=== PATIENT | female | born 1965 | race Caucasian/White ===

== ENCOUNTER 2016-10-09 11:08 | Inpatient (IN) | payer MEDICARE, OTHER ==
[~2016-10-09] VITALS: Ht 170.2 cm; Wt 76.2 kg
[~2016-10-09 11:08] MED LIST: ARIP15TA2 PO; CYCL10TA2 PO; HYDR-971 PO; Hydrocodone/Acetaminophen PO; LAMO200T3 PO; LEVO500T38 PO; METR500T PO; NAPR550T3 PO; TRAZ100T12 PO
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
[2016-10-09 13:13] LABS: BASO # 0.2 x10^3/uL (0.0-0.2); BASO % 1 % (0-3); EOS % 1 % (0-3); HEMATOCRIT 38.8 % (36.0-47.0); HEMOGLOBIN 12.4 g/dL (12.0-15.5); LYMPH # 6.5 x10^3/uL (1.0-4.8); LYMPH % 52 % (24-48); MEAN CORPUSCULAR HEMOGLOBIN 29 pg (25-35); MEAN CORPUSCULAR HGB CONC 32 g/dL (31-37); MEAN CORPUSCULAR VOLUME 89 fL (79-100); MONO % 4 % (0-9); NEUT % 41 % (31-73); PLATELET COUNT 426 x10^3/uL (140-400); RED BLOOD COUNT 4.35 x10^6/uL (3.50-5.40); RED CELL DISTRIBUTION WIDTH 16.3 % (11.5-14.5); WHITE BLOOD COUNT 12.5 x10^3/uL (4.0-11.0)
--- NOTE | 2016-10-09 13:14 | RAD ---
Portable chest, 10/09/2016: History: Chest pain Comparison is made to a study from 03/16/2007. The heart size and pulmonary vascularity are normal. No pulmonary infiltrates are seen. There is no evidence of pleural fluid. IMPRESSION: No acute cardiopulmonary abnormality is detected.
[2016-10-09 13:23] LABS: PROTHROMBIN TIME PATIENT 12.1 SEC (11.7-14.0)
[2016-10-09 13:36] LABS: CALCIUM 9.6 mg/dL (8.5-10.1); POTASSIUM 4.4 mmol/L (3.5-5.1)
[2016-10-09 13:37] LABS: MAGNESIUM 2.4 mg/dL (1.8-2.4)
[2016-10-09 13:48] LABS: CKMB INDEX 0.5 % (0-4); CKMB MASS 0.6 ng/mL (0.0-3.6)
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
[2016-10-09] MEDS ORDERED: MORPHINE SULFATE 2 MG/ML DISP.SYRIN. IV PRN (15:15)
[2016-10-09] MEDS ORDERED: ONDANSETRON PF 4 MG/2 ML VIAL. IV PRN ×2 (15:15→22:30)
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
[2016-10-09] MEDS ORDERED: ASPIRIN 325 MG TABLET PO ONE (16:00)
--- NOTE | 2016-10-09 16:43 | ACF ---
Admission Forms Criteria CARDIOLOGY GRG Clinical Indications for Admission to Inpatient Care ( Place 'X' for any and all applicable criteria): Hospital admission is needed for appropriate care of the patient because of ANY ONE of the following (1): [ ] I. Hemodynamic instability as indicated by ALL of the following (1)(2)(3) (4)(5) [ ]a) Vital signs or other findings not as expected for chronic patient condition or baseline [ ]b) Instability indicated by ANY ONE of the following: [ ]i) Hypotension [ ]ii) Symptomatic Tachycardia unresponsive to treatment ( e.g., analgesia, fluids, sedation as indicated) [ ]iii) Inadequate perfusion indicated by ANY ONE of the following: [ ] 1) Lactic acidosis (> 2 mmol/L) [ ] 2) New abnormal capillary refill (> 3 seconds) [ ] 3) Reduced urine output [ ] 4) New altered mental status [ ]iv) Orthostatic vital sign changes unresponsive to treatment (e.g., fluids) [ ]v) IV inotropic or vasopressor medication required to maintain adequate blood pressure or perfusion [ ] II. Severe heart failure as indicated by ANY ONE of the following(17)(18) [ ]a) Respiratory distress [ ]b) Hypotension [ ]c) Anasarca (refractory to outpatient therapy) [ ]d) Cardiac arrhythmias of immediate concern [ ]e) Myocardial ischemia [ ] III. Cardiac arrhythmias or findings of immediate concern indicated by ANY ONE of the following (19)(20): [ ] a) Heart rhythms that are inherently dangerous or unstable indicated by ANY ONE of the following (21)(22)(23): [ ] i) Resuscitated ventricular fibrillation or cardiac arrest [ ] ii) Ventricular escape rhythm [ ] iii) Sustained ventricular tachycardia (30 seconds or more of ventricular rhythm at greater than 100 beats per minute) [ ] iv) Nonsustained ventricular tachycardia and ANY ONE of the following: [ ] 1) Suspected cardiac ischemia as cause or consequence of ventricular tachycardia [ ] 2) In setting of acute myocarditis [ ] b) Unstable cardiac conduction defects indicated by ANY ONE of the following(23)(24)(25) [ ] i) Type II second-degree atrioventricular block [ ]ii) Third-degree atrioventricular block [ ]iii) New-onset left bundle branch block with suspected myocardial ischemia [ ]c) Any heart rhythm and ANY ONE of the following (21)(22)(26)(27) (28) [ ] i) Continuous long-term ECG monitoring needed (e.g., initiation of drug requiring monitoring for more than 24 hours) [ ] ii) Patient has automatic implanted cardioverter defibrillator that is repeatedly firing, malfunctioning, or in need of immediate adjustment of settings beyond the scope of ambulatory or observation care [ ]d) Heart rhythms of concern due to ANY ONE of the following: [ ] i) Hypotension [ ] ii) Respiratory distress [ ] iii) Association with other significant symptoms (e.g., bradycardia with syncope or ongoing dizziness, supraventricular tachycardia with chest pain (14)(15)(17) [ ] IV. Monitoring for cardiac contusion beyond the scope of observation care needed [A](30)(31)(32) [ ] V. Surgical or device complication (e.g., valve replacement complication , pacemaker dysfunction) (35)(41)(44)(45)(46) [ ] . Inpatient palliative care needed. [B](49) Also use Inpatient Palliative Care Criteria [ ] VII. Nonbacterial thrombotic (marantic) endocarditis (36)(43)(47)(48) [X] VIII. Cardiology condition, symptom, or finding for which emergency and observation care has failed or are not considered appropriate. [ ] IX. Acute valvular disease requiring inpatient as indicated by ANY ONE of the following (41) [ ]a) Acute valvular regurgitation (42) [ ]b) Noninfectious valvulitis (43) [ ]c) Obstructive valve thrombosis [ ]d) Paravalvular leak [ ]e) Other significant valvular disorder remaining after emergency or observation level of care (as appropriate) [ ]X. Pericardial disease requiring inpatient treatment as indicated by ANY ONE of the following (33)(34)(35)(36)(37) [ ]a) Suspected tamponade (38)(39)(40) [ ]b) Hemopericardium [ ]c) Other significant pericardial disorder remaining after emergency or observation level of care (as appropriate) [ ] XI. Cardiac ischemia beyond scope of emergency and observation care. [ ] XII. Hypertension requiring inpatient treatment as indicated by ANY ONE of the following (6)(7)(8) [ ]a) SBP greater than 220 mm Hg or DBP greater than 120 mmHg despite treatment [ ]b) SBP greater than 140 mm Hg or DBP greater than 100 mm Hg with evidence of acute end organ damage as indicated by ANY ONE of the following [ ] i) Encephalopathy [ ] ii) Acute renal failure as indicated by new onset of ANY ONE of the following (9)(10)(11)(12)(13) [ ]1) 3-fold rise in serum creatinine from baseline [ ]2) Serum creatinine greater than 4 mg/dL ( 354 micromoles/L) with acute rise greater than 0.5 mg/dL (44.2 micromoles/L) [ ]3) Reduction of more than 75% in estimated glomerular filtration rate from baseline [ ]4) Estimated glomerular filtration rate less than 35 mL/min/1.73m2 (0.59 mL/sec/1.73m2) in child up to 18 years of age [ ]5) Cessation of urine output indicated by ALL of the following [ ]A. Adequate volume status [ ]B. Inadequate urine output as indicated by ANY ONE of the following [ ]a. Urine output less than 0.3 mL/kg/hr for 24 hours [ ]b. Anuria (urine output less than 0.1 mL/kg/hr) for 12 hours [ ] iii) Aortic dissection [ ] iv) Myocardial Ischemia [ ] v) Left ventricular heart failure [ ]vi) Retinal Hemorrhage [ ]vii) Other significant finding [ ]c) Hypertension in child requiring inpatient treatment as indicated by ALL of the following(14)(15)(16) [ ] i) Outpatient treatment not effective, not available, or not appropriate [ ]ii) SBP or DBP greater than 95th percentile for age [ ]iii) Evidence of acute end organ damage as indicated by ANY ONE of the following [ ]1) Altered mental status [ ]2) Acute renal failure as indicated by new onset of ANY ONE of the following(9)(10)(11)(12)(13) [ ]A. 3-fold rise in serum creatinine from baseline [ ]B. Serum creatinine greater than 4 mg/dL (354 micromoles/L) with acute rise greater than 0.5 mg/dL (44.2 micromoles/L) [ ]C. Reduction of more than 75% in estimated glomerular filtration rate from baseline [ ]D. Estimated glomerular filtration rate less than 35 mL/min/1.73m2 (0.59 mL/sec/1.73m2) in child up to 18 years of age [ ]E. Cessation of urine output indicated by ALL of the following [ ]a. Adequate volume status [ ]b. Inadequate urine output as indicated by ANY ONE of the following [ ]i) Urine output less than 0.3 mL/kg/hr for 24 hours [ ]ii) Anuria ( urine output less than 0.1 mL/kg/hr) for 12 hours [ ]3) Severe headache [ ]4) Visual disturbance [ ]5) Retinal hemorrhage [ ]6) Other significant finding [ ]XIII. Complications of transplanted heart indicated by ANY ONE of the following(61): [ ]a) Acute graft rejection requiring inpatient management (eg, intravenous immunosuppression)(62)(63) [ ]b) Acute graft heart failure indicated by ANY ONE of the following(64): [ ]i) Hemodynamic instability [ ]ii) Cardiac arrhythmias of immediate concern [ ]iii) Pulmonary edema that is very severe (eg, mechanical ventilation needed, imminent or likely, need for 100% oxygen to keep oxygen saturation above 90%) [ ]iv) Pulmonary edema that is persistent as indicated by ALL of the following: [ ]1) New need for oxygen therapy to keep oxygen saturation above 90% (or increased FiO2 need from baseline) [ ]2) Has not improved sufficiently with emergency department or observation care IV diuretics or other heart failure treatments[E] [ ]v) Altered mental status that is severe or persistent [ ]vi) Increased creatinine (new on laboratory test) with reduction of more than 50% in estimated glomerular filtration rate from baseline [ ]vii) Progressively (ongoing) rising creatinine (known from past laboratory test) with reduction of more than 25% in estimated glomerular filtration rate from baseline [ ]viii) Acute renal failure [ ]ix) Acute peripheral ischemia (eg, examination shows pulseless, cool, mottled, or cyanotic extremity) [ ]x) Pulmonary artery catheter monitoring needed [ ]xi) Other sign or symptom of heart failure requiring inpatient treatment (ie, too severe or not responsive to outpatient and observation care treatment) [ ]c) Infection requiring inpatient management (eg, Hemodynamic instability, need for intravenous antimicrobial treatment)(66)(67)(68)(69)(70) [ ]d) Cardiac allograft vasculopathy requiring inpatient management ( eg evidence of cardiac ischemia)(71) [ ]e) Other complication of transplanted heart (eg, stroke, severe pulmonary hypertension, severe valvular dysfunction) requiring inpatient management(72) The original [facility] content created by [facility] has been revised. The portions of the content which have been revised are identified through the use of italic text or in bold, and [facility] has neither reviewed nor approved the modified material. All other unmodified content is copyright [facility]. Please see references footnoted in the original [facility] edition 2016 Admission Criteria Met?: Yes CANDIE BARNES Oct 09, 2016 16:43
[2016-10-09 17:09] LABS: % BASOS 1 % (0-3)
[2016-10-09 17:11] LABS: ANISOCYTOSIS SLIGHT; PLT ESTIMATE INCREASED (ADEQUATE)
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
[2016-10-09 18:30] VITALS: BP 105/54
[2016-10-09] MEDS ORDERED: ZOLPIDEM 5 MG TABLET. PO PRN (20:30)
[2016-10-09] MEDS ORDERED: HYDROCODONE/APAP 5/325MG TABLET. PO PRN (22:30)
[2016-10-09] MEDS ORDERED: hydrALAZINE 20 MG/ML VIAL. IVP PRN (22:30)
[2016-10-09] MEDS ORDERED: ACETAMINOPHEN 325 MG TABLET. PO PRN (22:30)
[2016-10-09] MEDS ORDERED: ALBUTEROL SULFATE 2.5 MG/3 ML NEBU. NEB PRN (22:30)
[2016-10-09 23:00] VITALS: BP 98/66
[2016-10-10 03:03] VITALS: BP 91/60
[2016-10-10 03:43] LABS: BASO # 0.1 x10^3/uL (0.0-0.2); BASO % 1 % (0-3); EOS % 3 % (0-3); HEMATOCRIT 35.7 % (36.0-47.0); HEMOGLOBIN 11.7 g/dL (12.0-15.5); LYMPH # 6.2 x10^3/uL (1.0-4.8); LYMPH % 64 % (24-48); MEAN CORPUSCULAR HEMOGLOBIN 29 pg (25-35); MEAN CORPUSCULAR HGB CONC 33 g/dL (31-37); MEAN CORPUSCULAR VOLUME 88 fL (79-100); MONO % 6 % (0-9); NEUT % 27 % (31-73); PLATELET COUNT 430 x10^3/uL (140-400); RED BLOOD COUNT 4.08 x10^6/uL (3.50-5.40); RED CELL DISTRIBUTION WIDTH 16.1 % (11.5-14.5); WHITE BLOOD COUNT 9.7 x10^3/uL (4.0-11.0)
[2016-10-10 03:52] LABS: ALBUMIN 3.1 g/dL (3.4-5.0); ALBUMIN/GLOBULIN RATIO 0.8 (1.0-1.7); CALCIUM 8.8 mg/dL (8.5-10.1); POTASSIUM 4.2 mmol/L (3.5-5.1); TOTAL BILIRUBIN 0.2 mg/dL (0.2-1.0)
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
[2016-10-10 07:00] VITALS: BP 108/62
--- NOTE | 2016-10-10 07:40 | EKG ---
[facility] [address] [place] [address] Test Date: 2016-10-10 Test Time: 05:35:14 Pat Name: VÍCTOR LEYVA Department: Room: [facility] Gender: Engineering Team Supervisor: : 1965 Requested By: THEO STODDARD Order Number: [id number] Reading MD: Houston Alex Measurements Intervals [place] Rate: P: [place]: QRS: QRSD: T: QT: QTc: Interpretive Statements SINUS RHYTHM Electronically Signed On 10-10-2016 8:47:00 CDT by Houston Alex
[2016-10-10] MEDS ORDERED: lamoTRIgine 100 MG TABLET. PO SCH (09:00)
[2016-10-10] MEDS ORDERED: ARIPIPRAZOLE 5 MG TABLET. PO SCH (09:00)
[2016-10-10 11:00] VITALS: BP 115/72
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
[2016-10-10 15:00] VITALS: BP 114/60
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
== END 2016-10-10 20:11 | disposition left against medical advice (07) | DRG 392 ==
LOC: ER 11:08 → ED HOLD 14:43 → 5 NORTH 18:15
PROVIDERS: ADMIT Internal Medicine; ATTEND Internal Medicine
DX: K21.9 Gastro-esophageal reflux disease without esophagitis (principal); F14.10 Cocaine abuse, uncomplicated; F17.200 Nicotine dependence, unspecified, uncomplicated; F41.9 Anxiety disorder, unspecified; F31.9 Bipolar disorder, unspecified; F43.10 Post-traumatic stress disorder, unspecified; M19.90 Unspecified osteoarthritis, unspecified site; Z87.440 Personal history of urinary (tract) infections; Z90.81 Acquired absence of spleen; Z88.2 Allergy status to sulfonamides; B19.20 Unspecified viral hepatitis C without hepatic coma
CPT/HCPCS: 36415; 71010; 73610; 80048; 80053; 82553; 83690; 83735; 83880; 84443; 84484; 85007; 85027; 85379; 85610; 93005; 93306; 93971; 99285-25

== ENCOUNTER 2017-03-06 17:36 | Emergency (ER) | payer MEDICARE, OTHER ==
[~2017-03-06] VITALS: Ht 170.2 cm; Wt 76.2 kg
[~2017-03-06 17:36] MED LIST changes: -ARIP15TA2 PO; +ARIP15TA3 PO; -LEVO500T38 PO; +LEVO500T59 PO; +NAPR-677 PO; -NAPR550T3 PO
[2017-03-06 17:52] VITALS: BP 143/91
[2017-03-06] MEDS ORDERED: HYDR50CA PO (18:04)
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
== END 2017-03-06 18:10 | disposition home or self-care (01) ==
LOC: ER 17:36
DX: L29.9 Pruritus, unspecified (principal); F15.10 Other stimulant abuse, uncomplicated; F14.10 Cocaine abuse, uncomplicated; Z88.2 Allergy status to sulfonamides
CPT/HCPCS: 99283

== ENCOUNTER → 2017-03-17 | Outpatient (CLI) | payer MEDICARE, OTHER ==
[2017-03-06 17:52] VITALS: BP 143/91
[~2017-03-17] MED LIST changes: +HYDR50CA PO
--- NOTE | 2017-03-18 08:30 | RAD ---
DATE: 03/17/2017 EXAM: DIGITAL SCREEN BILAT W/CAD HISTORY: Screening COMPARISON: None. This is a baseline exam. This study was interpreted with the benefit of Computerized Aided Detection (CAD). FINDINGS: Breast Density: HETERO The breast parenchyma Is heterogeneiously dense, which could reduce sensitivity of mammography. Breast parenchyma level C. No dominant mass or suspect group of calcifications is seen in either breast. Well-defined masses are seen in both axilla compatible with lymph nodes. IMPRESSION: Benign findings BI-RADS CATEGORY: 2 BENIGN FINDING(S) RECOMMENDED FOLLOW-UP: 12M 12 MONTH FOLLOW-UP PQRS compliance statement: Patient information was entered into a reminder system with a target due date 03/17/2018 for the next mammogram. Mammography is a sensitive method for finding small breast cancers, but it does not detect them all and is not a substitute for careful clinical examination. A negative mammogram does not negate a clinically suspicious finding and should not result in delay in biopsying a clinically suspicious abnormality. "Our facility is accredited by the [employer] Mammography Program."
== END | disposition home or self-care (01) ==
LOC: MAMMO 14:00
PROVIDERS: ATTEND Family Medicine
DX: Z12.31 Encounter for screening mammogram for malignant neoplasm of breast (principal)
CPT/HCPCS: G0202; 77067

== ENCOUNTER → 2020-11-07 | Outpatient (CLI) | payer MEDICARE ==
[2020-04-28 14:37] VITALS: BP 131/86
[~2020-11-07] MED LIST changes: +AMOX1TAB11 PO; +AZIT250T6 PO; +HYDR-3164 PO; -HYDR-971 PO; +LAMO200T6 PO; +OMEP20CA16 PO; +PRED20TA PO; +TEMA15CA PO; +TRAZ-123 PO; -TRAZ100T12 PO
--- NOTE | 2020-11-07 15:41 | KCIC ---
Five-view lumbar spine series Clinical indications: Low back pain. Bilateral sciatica. The left side worse than right. FINDINGS: No compression fracture or discitis or lytic process or anterolisthesis is evident. The tra nsverse processes are intact. No spondylolysis is seen. Mild degenerative disc space narrowing and en dplate spurring is seen at L2-3 and L4-5. IMPRESSION: Mild degenerative lumbar spondylosis. No acute compression fracture. Electronically signed by: iWn Loco MD (11/07/2020 3:38 PM) [id number]
== END ==
LOC: KCIC 14:34
PROVIDERS: ATTEND Family Medicine
DX: M47.816 Spondylosis without myelopathy or radiculopathy, lumbar region (principal); M48.061 Spinal stenosis, lumbar region without neurogenic claudication
CPT/HCPCS: 72110

== ENCOUNTER → 2020-12-22 | Outpatient (CLI) | payer OTHER ==
[2020-04-28 14:37] VITALS: BP 131/86
--- NOTE | 2020-12-22 12:46 | KCIC ---
EXAMINATION: Magnetic resonance imaging (MRI) of the lumbar spine without contrast 12/22/2020 11:00 AM HISTORY: Left lumbar radiculopathy. Chronic low back pain TECHNIQUE: Multiplanar multi-weighted MRI of the lumbar spine was performed without intravenous contr ast using the standard lumbar spine protocol. Contrast information: None administered. COMPARISON: None available. FINDINGS: Minimal retrolisthesis of L2 on L3 and mild on L4 and L5 on S1 measuring up to 2-3 mm. Conus medullar is terminates at L1. Distal spinal cord signal intensity is normal in all sequences. There is a centr al disc extrusion identified at T11-T12 with moderate disc height loss. There is mild spinal canal st enosis without significant cord compression. Vertebral body heights are maintained. No acute compress ion fracture is identified. Visualized portions of the retroperitoneum appear normal. Abdominal aorta is normal in course and caliber. Sacrum is normal as visualized. L2-L3: There is a central disc extrusion superimposed on diffuse disc bulge. Mild to moderate facet a rthropathy. Mild bilateral neuroforaminal stenosis. Mild spinal canal stenosis. L3-L4: Disc is normal in configuration. No significant facet arthropathy. No neuroforaminal or spinal canal stenosis. L4-L5: Mild disc bulge. Mild/moderate facet arthropathy. Mild bilateral neuroforaminal stenosis. No s dev canal stenosis. L5-S1: Mild disc bulge. Mild facet arthropathy. No neuroforaminal or spinal canal stenosis. IMPRESSION: Mild degenerative changes of the lumbar spine as described in detail above. Electronically signed by: Lona Padilla MD (12/22/2020 12:43 PM) [id number]
== END ==
LOC: KCIC MRI 10:44
PROVIDERS: ATTEND Family Medicine
DX: M47.27 Other spondylosis with radiculopathy, lumbosacral region (principal); M51.16 Intervertebral disc disorders with radiculopathy, lumbar region; M48.061 Spinal stenosis, lumbar region without neurogenic claudication
CPT/HCPCS: 72148

== ENCOUNTER 2021-01-02 13:10 | Emergency (ER) | payer OTHER ==
[~2021-01-02] VITALS: Ht 167.6 cm; Wt 79.5 kg
[2021-01-02 13:29] VITALS: BP 163/101
[2021-01-02] MEDS ORDERED: CYCL5TAB PO (13:45)
[2021-01-02] MEDS ORDERED: KETOROLAC 60 MG/2 ML VIAL. IM ONE (13:45)
[2021-01-02] MEDS ORDERED: ACETAMINOPHEN 325 MG TABLET. PO ONE (13:45)
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
== END 2021-01-02 14:01 | disposition home or self-care (01) ==
LOC: ER 13:10
DX: M54.42 Lumbago with sciatica, left side (principal); F31.9 Bipolar disorder, unspecified; F43.10 Post-traumatic stress disorder, unspecified; F17.200 Nicotine dependence, unspecified, uncomplicated; Z90.81 Acquired absence of spleen; Z88.2 Allergy status to sulfonamides
CPT/HCPCS: 96372; 99283; J1885

== ENCOUNTER → 2021-01-22 | Outpatient (CLI) | payer MEDICARE, MEDICAID ==
[2021-01-02 13:29] VITALS: BP 163/101
[~2021-01-22] MED LIST changes: +CLON2TAB9 PO; +CYCL5TAB PO; +HYDR25TA PO
--- NOTE | 2021-01-22 11:40 | PDOC1 ---
INITIAL PAIN CONSULT DATE OF SERVICE: DOS: DATE: 01/22/21 TIME: 11:33 CHIEF COMPLAINT: Chief Complaint: Low back and left lower extremity pain HISTORY OF PRESENT ILLNESS: 55-year-old female presents with history of pain low back left lower extremity for about a year after she fell at home twice as she missed some stairs on her staircase and has exacerbated the pain although she did have some pain prior to this. Patient reports over the past years gotten worse in the low back rating the left lower extremity posterior gluteus posterior thigh lateral thigh anterior thigh medial thigh medial lower leg as well as the posterior calf patient reports is worse with walking standing changing positions better with sitting or laying down has been waking her from sleep at night at least 3-4 times each night. Patient reports it does not affect her bowel bladder control but does affect ability walk she is using a cane in her right hand currently. Patient reports she has had Medrol dose packs as well as Tylenol tramadol and Klonopin which have helped the pain but only by a small amount patient reports she has done physical therapy stretching and strengthening exercises and is doing those on her own has had no formal training no chiropractic treatments or other modalities at this time but even with the stretching strengthening is becoming much more painful for her to do these on her own. Patient tries to walk daily although the pain is becoming to the point where she is unable to do this more than about 10 minutes. Patient reports her pain is coming more constant and becoming more noticeable during the day and at night waking her from sleep as noted. Patient rates her disability rating 0-10 10 the worst as a 6 with family home responsibilities 3 with recreation 4 with social activity 8 with occupation and sexual behavior 1 with self-care and life support activities. Patient have a MRI scan lumbar spine showing at L2-3 central disc extrusion superimposed on diffuse disc bulge with mild to moderate facet arthropathy and mild bilateral neuroforaminal stenosis and mild spinal canal stenosis L4-5 shows mild disc bulge with mild to moderate facet arthropathy and mild bilateral neuroforaminal stenosis. Patient reports no loss of motor function but significant fatigability of the left leg with any activity. PAST MEDICAL HISTORY: PMH: Hearing loss, dizziness, gastroesophageal reflux, arthritis PREVIOUS SURGERIES: Past Surgical Hx: Splenectomy CURRENT MEDICATIONS: Current Meds: Active Scripts Medications Dose Route/Sig Max Daily Dose Days Date Category Clonazepam 2 Mg Tablet 2 Mg PO DAILY 01/22/21 Reported Hydroxyzine Hcl 25 Mg Tablet 1 Tab PO HS 01/22/21 Reported Lamotrigine 200 Mg Tablet 200 Mg PO HS 04/27/20 Reported ALLERGIES; Allergies: Coded Allergies: Sulfa (Sulfonamide Antibiotics) (Verified Allergy, Intermediate, 04/27/20) hydrocodone (Verified Allergy, Unknown, Unknown, 01/22/21) morphine (Verified Allergy, Unknown, Unknown, 01/22/21) FAMILY HISTORY: Family Hx: Cancers SOCIAL HISTORY: Social Hx: Patient is nondrug alcohol uses vapor cigarettes does not use any illegal illicit recreational drugs is single lives locally in [facility] REVIEW OF SYSTEMS: ROS: Positive for those items mentioned in history of present illness, all systems are reviewed, otherwise negative ,and are complete full and well-documented on patient's chart. PHYSICAL EXAM: VS: Blood pressure is 142/65 pulse 77 respiration 16 temperature 97.8 F height is 5 feet 6 inches weight is 181 pounds PE: PHYSICAL EXAMINATION: GENERAL: The patient is awake, alert, oriented, appropriate, very pleasant in demeanor, patient accompanied by her daughter. HEENT: Shows normocephalic, atraumatic. Extraocular movements are intact and symmetrical. Oral cavity: Mucous membranes moist and pink. Dentition is intact. NECK: Shows anterior throat supple without palpable lymphadenopathy noted. Swallow reflex symmetrical. CHEST: Shows normal on inspection. Breath sounds are clear bilaterally, distant but no rales or rhonchi auscultated. HEART: Shows S1, S2 clear. No murmurs auscultated. ABDOMEN: Soft, nontender, nondistended, obese. No palpable organomegaly is noted. No rebound or guarding demonstrated. BACK: Shows spine grossly in the midline. Normal-appearing cervical lordotic curvature. There is increased thoracic kyphosis, some mild flattening of the lumbar lordotic curvature. Lumbar paraspinous muscles show symmetrical on inspection, on palpation shows some moderate tenderness diffusely throughout the upper, middle and lower distribution of the paraspinous muscles bilaterally and also into the lower thoracic paraspinous musculature, firm and tender, without specific trigger points, without radiation of pain. The patient has good rotational motion of the lumbar spine, both laterally as well as extension and flexion without significant difficulty, but with moderate pain reported. No ten derness over the spinous processes, sacrum or sacroiliac regions. EXTREMITIES: Lower extremities show deep tendon reflexes 1+ in the patellar and tendo calcaneus tendons. Motor exam is 5 on a scale of 5 with right dorsiflexion, extension, quadriceps and hamstring flexion and 4/5 on the left. Peripheral pulses are 1 posterior tibial. No peripheral edema is noted bilaterally. Lower extremities are warm and dry to touch, equal in color and appearance. Straight leg raise noted to be positive on the left at about 30 degrees, decreased with knee flexion, right side is negative. Gaenslen's and Miguelito's maneuvers are negative bilaterally as well. The patient is able to stand, has difficulty rising from a seated position uses her cane to help her stand has a significant limping gait favoring the left lower extremity. SKIN: Shows warm and dry, good turgor. No edema. No sores, rashes or bruising throughout. IMPRESSION: Impression: 55-year-old female with 1 year history low back left lower extremity pain in a radicular fashion MRI scan lumbar spine as noted Arthritis Dizziness Hearing loss Plan: Options were discussed with the patient patient started tolerating her visit today. We discussed continued physical therapies interventional techniques as well as medication management. Patient likes interventional techniques. We discussed a lumbar epidural steroid injections description as well as anatomical models to describe the procedure. Patient will wait for preauthorization with her insurance provider have her return for a translaminar approach at the L4-5 level lumbar epidural steroid injection with fluoroscopic guidance at that time. In the meantime patient will continue with stretching and strength exercises and walking to the best of her ability, and pain tolerance. RIO MERCER MD Jan 22, 2021 11:40
== END | disposition home or self-care (01) ==
LOC: PNCL 09:16
PROVIDERS: ATTEND Anesthesiology
DX: M54.5 Low back pain (principal); M79.605 Pain in left leg; K21.9 Gastro-esophageal reflux disease without esophagitis; M19.90 Unspecified osteoarthritis, unspecified site; F41.9 Anxiety disorder, unspecified; F32.9 Major depressive disorder, single episode, unspecified; Z79.899 Other long term (current) drug therapy; Z98.890 Other specified postprocedural states; Z82.49 Family history of ischemic heart disease and other diseases of the circulatory system; Z83.3 Family history of diabetes mellitus; Z88.2 Allergy status to sulfonamides; Z88.6 Allergy status to analgesic agent; Z88.8 Allergy status to other drugs, medicaments and biological substances
CPT/HCPCS: G0463

== ENCOUNTER → 2021-02-05 | Outpatient (CLI) | payer MEDICARE, MEDICAID ==
[~2021-02-05] MED LIST changes: +IOHEXOL 180 MG/ML 10 ML VIAL. ONE; +methylPREDNISolone ACETATE 40 MG/ML VIAL. ONE; +methylPREDNISolone ACETATE 80 MG/ML VIAL. ONE
--- NOTE | 2021-02-05 11:06 | PDOC ---
Progress Note - Pain Clinic Date of Service: DOS: DATE: 02/05/21 TIME: 11:03 Diagnosis: Dx: Lumbar radiculopathy with lumbar degenerative disc disease History or Present Illness: HPI: 55-year-old female returns for follow-up status post initial evaluation and returns for lumbar epidural steroid injection today reporting pain in the low back and left lower extremity low back radiating to left leg posterior lateral thigh anterior thigh medial thigh medial lower leg and lateral lower leg right is an 8 on scale 10 is worse over the past week 8 on average 8 its least is an 8 today patient ports shooting cramping can be constant and radiating on and off i n intensity worse with walking standing changing positions better with sitting or laying down but awaken her from sleep least 3-4 times a night patient reports he been holding onto the jennings when she walks rails for stairways does not use any canes or walkers at this time. Patient reports no bowel or bladder incontinence no motor or sensory deficits. Patient reports that she does feel unstable on her feet but has not fallen since last visit. Physical Exam: VS: Blood pressure is 141/48 pulse 55 respirations 18 temperature is 98.4 F height is 5 feet 6 inches weight is 187 pounds PE: PHYSICAL EXAMINATION: GENERAL: The patient is awake, alert, oriented, appropriate, very pleasant in demeanor. HEENT: Shows normocephalic, atraumatic. Extraocular movements are intact and symmetrical. NECK: Shows anterior throat supple without palpable lymphadenopathy noted. Swallow reflex symmetrical. CHEST: Shows normal on inspection. Breath sounds are clear bilaterally, no rales rhonchi or wheezes auscultated. HEART: Shows S1, S2 clear. No murmurs auscultated. ABDOMEN: Soft, nontender, nondistended, obese. No palpable organomegaly is noted. BACK: Shows spine grossly in the midline. Normal-appearing cervical lordotic curvature. There is slightly increased thoracic kyphosis, some minor flattening of the lumbar lordotic curvature. Lumbar paraspinous muscles show symmetrical on inspection, on palpation shows some moderate tenderness diffusely throughout the upper, middle and lower distribution of the paraspinous muscles without specific trigger points, without radiation of pain. The patient has good rotational motion of the lumbar spine, both laterally as well as extension and flexion without significant difficulty. EXTREMITIES: Lower extremities show deep tendon reflexes 1+ in the patellar and tendo calcaneus tendons. Motor exam is 5 on a scale of 5 with right dorsiflexion, extension, quadriceps and hamstring flexion and 4/5 on the left. Peripheral pulses are 1+ posterior tibial. No peripheral edema is noted bilaterally. Lower extremities are warm and dry. SKIN: Shows warm and dry, good turgor. No edema. No sores, rashes or bruising throughout. Procedure: Procedure: Options discussed with the patient. Patient chart reviews her current medication regimen updated current review of systems updated today as well. We will proceed with a lumbar epidural steroid injection today with fluoroscopic guidance. Risks were discussed including but not limited to: Bleeding, infection, possibility of epidural hematoma and subsequent neurological compromise, dural puncture, headaches, spinal cord and/or nerve damage, side effects of steroid medication, and poor results regarding pain control. Patient understands and wished to proceed. Patient will return to the clinic in approximately 2 weeks for follow-up, was counseled as to return appointment activity level and side effects to be aware of. Medication Injected: Med Injected: Procedure is lumbar epidural steroid injection under local anesthetic using sterile prep and drape at the L4-5 level using C-arm fluoroscopic guidance in both AP and lateral views medications injected is 120 mg Depo-Medrol +10mL preservative-free normal saline and 2 mL contrast- condition at discharge is stable patient tolerated procedure well had no complications. Condition at Discharge: Condition at Discharge: Condition at discharge stable, patient tolerated procedure well and had no complications. RIO MERCER MD Feb 05, 2021 11:06
--- NOTE | 2021-02-05 11:07 | PDOC4 ---
Procedure Note: ICD 10 Code: ICD 10 Code: M54.16 M51.36 Procedure Note: Patient was consented for lumbar epidural steroid injection with fluoroscopic guidance. Risks were discussed including but not limited to: Bleeding, infection, possibility of epidural hematoma and subsequent neurological compromise, dural puncture, headaches, spinal cord and/or nerve damage, side effects of steroid medication, and poor results regarding pain control. Patient understands and wished to proceed. Procedure is lumbar epidural steroid injection under local anesthetic using sterile prep and drape at the L4-5 level using C-arm fluoroscopic guidance in both AP and lateral views medications injected is 120 mg Depo-Medrol +10mL preservative-free normal saline and 2 mL contrast- condition at discharge is stable patient tolerated procedure well had no complications. RIO MERCER MD Feb 05, 2021 11:07
== END | disposition home or self-care (01) ==
LOC: PNCL 10:46
PROVIDERS: ATTEND Anesthesiology
DX: M51.16 Intervertebral disc disorders with radiculopathy, lumbar region (principal); F41.9 Anxiety disorder, unspecified; F32.9 Major depressive disorder, single episode, unspecified; F17.210 Nicotine dependence, cigarettes, uncomplicated; Z79.899 Other long term (current) drug therapy; Z98.890 Other specified postprocedural states; Z82.49 Family history of ischemic heart disease and other diseases of the circulatory system; Z83.3 Family history of diabetes mellitus; Z72.89 Other problems related to lifestyle; Z88.2 Allergy status to sulfonamides; Z88.6 Allergy status to analgesic agent; Z88.8 Allergy status to other drugs, medicaments and biological substances
CPT/HCPCS: 62323; J1030; J1040; Q9965

== ENCOUNTER → 2021-11-07 | Outpatient (CLI) | payer MEDICARE, MEDICAID ==
[2021-10-21 15:58] VITALS: BP 116/68
[~2021-11-07] MED LIST changes: +CYCL10TA19 PO; -CYCL10TA2 PO; +IBUP-1007 PO; -IOHEXOL 180 MG/ML 10 ML VIAL. ONE; +NEOM28.33 TP; -methylPREDNISolone ACETATE 40 MG/ML VIAL. ONE; -methylPREDNISolone ACETATE 80 MG/ML VIAL. ONE
--- NOTE | 2021-11-07 16:52 | RAD ---
Bilateral digital screening 2-D and 3-D (tomosynthesis) mammogram: Reason for examination: Routine screening. Comparison is made to previous mammograms from 03/17/2017. Bilateral mammograms in CC and oblique projections were obtained with 2-D imaging and 3-D tomosynthes is imaging and reviewed on the workstation. Interpretation was made with the benefit of CAD. Findings: Breast density: Category C. The breasts are heterogeneously dense, which may obscure small masses. There are multiple bilateral oval circumscribed masses. Some of these are obscured by overlying fibro glandular tissue. He do not appear significantly changed 2017 accounting for differences between 2-D and 3-D techniques. There are no suspicious masses, malignant appearing calcifications or architectur al distortion. Impression: No evidence of malignancy. ASSESSMENT: BI-RADS 2. Benign findings. Recommendations: Routine screening mammograms. This patient's information has been entered into a reminder system for the patient to be notified wit h the results of her examination and a target date for the next mammogram. Your patient's mammogram demonstrates that she has dense breast tissue (breast density category C or D), which could hide abnormalities, and if she has other risk factors for breast cancer that have bee n identified, she might benefit from supplemental screening tests that may be suggested by you as her ordering physician. Dense breast tissue, in and of itself, is a relatively common condition. Therefo re, this information is not provided to cause undue concern, but rather to raise your awareness and t o promote discussion with your patient regarding the presence of other risk factors, in addition to d ense breast tissue. Electronically signed by: Ginger Mireles MD (11/07/2021 4:50 PM) [id number]
== END ==
LOC: MAMMO 10:00
PROVIDERS: ATTEND Family Medicine
DX: Z12.31 Encounter for screening mammogram for malignant neoplasm of breast (principal)
CPT/HCPCS: 77063; 77067